=== PATIENT | female | born 1990 | race Caucasian/White ===

== ENCOUNTER 2024-08-19 17:08 | Outpatient (CLI) | payer OTHER ==
[2024-08-19 19:02] LABS: HEMATOCRIT 39.2 % (36.0-45.00); HEMOGLOBIN 13.5 g/dL (12.0-15.00); MEAN CELL VOLUME 94.2 fL (80.00-100.00); MEAN CORPUSCULAR HEMOGLOBIN 32.5 pg (27.00-32.0); MEAN CORPUSCULAR HGB CONC 34.5 g/dl (32.0-36.0); PLATELET COUNT 219 K/uL (150-450); RED BLOOD COUNT 4.16 M/uL (4.00-6.00); RED CELL DISTRIBUTION WIDTH 13.2 % (11.5-14.5)
[2024-08-19 19:03] LABS: PH,URINE 6.5 (5.0-8.0); URINE APPEARANCE Clear; URINE BILIRRUBIN Negative (NEGATIVE); URINE BLOOD Negative; URINE COLOR Yellow; URINE GLUCOSE Negative (NEGATIVE); URINE KETONE Trace (NEGATIVE); URINE LEUKOCYTE Negative; URINE NITRATE Negative; URINE PROTEIN Negative (NEGATIVE); URINE UROBILINOGEN 0.2 E.U./dl
[2024-08-19 19:04] LABS: URINE BACTERIA 122.2 uL (0.0-1933); URINE EPITHELIAL CELLS 2.5 uL (0.0-38.8); URINE RBC 4.7 uL (0.0-20.8); URINE WBC 1.8 uL (0.0-23.2)
[2024-08-19 19:31] LABS: INR 0.97; PROTHROMBIN TIME 10.6 SECONDS (9.0-11.5)
[2024-08-19 19:38] LABS: ALBUMIN 2.9 gm/dL (3.4-5.0); BILIRUBIN TOTAL 0.27 mg/dL (0.3-1.2); CREATININE SERUM 0.52 mg/dL (0.55-1.02); GFR 134.19; GLOBULINA 4.1 G/DL (2.4-3.5); POTASSIUM 3.91 mEq/L (3.5-5.1); URIC ACID 3.8 mg/dL (2.5-7.5)
[2024-08-19 21:52] VITALS: BP 97/63
[2024-08-19 22:00] VITALS: BP 97/63
[2024-08-19] MEDS ORDERED: BETAMETHASONE ACETATE,SOD PHOS 30 MG/5 ML ML IM ONE (23:00)
[2024-08-19] MEDS ORDERED: SODIUM CHLORIDE 0.45 % 1,000 ML IV SCH (23:00)
[2024-08-20] VITALS (7 sets, daily range): BP systolic 96–118; BP diastolic 58–76; O2SAT 98
[2024-08-20] MEDS ORDERED: BETAMETHASONE ACETATE,SOD PHOS 30 MG/5 ML ML IM ONE (19:10)
[2024-08-20 20:00] LABS: URINE PROT QUANT 24HR < 5.00 MG/DL
[2024-08-20 20:16] LABS: CREATININE SERUM 0.67 mg/dL (0.6-1.0)
[2024-08-21 07:05] LABS: CREATINE CLEARANCE 185.4 ML/MIN (97-137)
== END 2024-08-20 21:41 | disposition home or self-care (01) ==
LOC: OBS/DEL 17:08
PROVIDERS: ATTEND Obstetrics & Gynecology
DX: O26.893 Other specified pregnancy related conditions, third trimester (principal); O26.849 Uterine size-date discrepancy, unspecified trimester; O36.8199 Decreased fetal movements, unspecified trimester, other fetus; O14.90 Unspecified pre-eclampsia, unspecified trimester; Z3A.32 32 weeks gestation of pregnancy

== ENCOUNTER 2024-09-17 02:20 | Outpatient (CLI) | payer OTHER ==
[2024-09-17 01:43] VITALS: BP 118/75
[2024-09-17] MEDS ORDERED: PRENATAL VITAM1 EAC3 PO (02:29)
[2024-09-17] MEDS ORDERED: ST. JOSEPH ASPI81 M2 PO (02:29)
[2024-09-17] MEDS ORDERED: RINGERS SOLUTION,LACTATED 1,000 ML IV SCH (02:30)
[2024-09-17 03:02] LABS: URINE APPEARANCE Clear; URINE BILIRRUBIN Negative (NEGATIVE); URINE BLOOD Negative; URINE COLOR Yellow; URINE GLUCOSE Negative (NEGATIVE); URINE KETONE Negative (NEGATIVE); URINE LEUKOCYTE Negative; URINE NITRATE Negative; URINE PROTEIN Negative (NEGATIVE); URINE UROBILINOGEN 0.2 E.U./dl
[2024-09-17 03:03] LABS: HEMATOCRIT 39.8 % (36.0-45.00); HEMOGLOBIN 13.7 g/dL (12.0-15.00); MEAN CELL VOLUME 93.8 fL (80.00-100.00); MEAN CORPUSCULAR HEMOGLOBIN 32.4 pg (27.00-32.0); MEAN CORPUSCULAR HGB CONC 34.5 g/dl (32.0-36.0); PLATELET COUNT 221 K/uL (150-450); RED BLOOD COUNT 4.24 M/uL (4.00-6.00); RED CELL DISTRIBUTION WIDTH 13.6 % (11.5-14.5)
[2024-09-17 03:05] LABS: URINE BACTERIA 285.1 uL (0.0-1933); URINE EPITHELIAL CELLS 5.5 uL (0.0-38.8); URINE WBC 3.9 uL (0.0-23.2)
[2024-09-17 03:29] LABS: URINE RBC 1.4 uL (0.0-20.8)
[2024-09-17 06:06] VITALS: BP 98/60; O2SAT 97
[2024-09-17 10:42] VITALS: BP 110/70
[2024-09-17 15:25] VITALS: BP 105/67
[2024-09-17 15:43] VITALS: BP 105/67
== END 2024-09-17 15:50 | disposition home or self-care (01) ==
LOC: OBS/DEL 02:20
PROVIDERS: ATTEND Obstetrics & Gynecology
DX: O26.893 Other specified pregnancy related conditions, third trimester (principal); O26.849 Uterine size-date discrepancy, unspecified trimester; O36.8199 Decreased fetal movements, unspecified trimester, other fetus; O34.219 Maternal care for unspecified type scar from previous cesarean delivery; O60.00 Preterm labor without delivery, unspecified trimester; O36.5990 Maternal care for other known or suspected poor fetal growth, unspecified trimester, not applicable or unspecified

== ENCOUNTER 2024-09-24 19:55 | Inpatient (IN) | payer OTHER ==
[~2024-09-24] VITALS: Ht 180.3 cm; Wt 2.3 kg
[~2024-09-24 19:55] MED LIST: PRENATAL VITAM1 EAC3 PO; ST. JOSEPH ASPI81 M2 PO
[2024-09-24 20:30] VITALS: BP 113/75
[2024-09-24 21:11] LABS: PH,URINE 6.5 (5.0-8.0); URINE APPEARANCE Clear; URINE BILIRRUBIN Negative (NEGATIVE); URINE BLOOD Negative; URINE COLOR Yellow; URINE GLUCOSE Negative (NEGATIVE); URINE KETONE Negative (NEGATIVE); URINE LEUKOCYTE Negative; URINE NITRATE Negative; URINE PROTEIN Negative (NEGATIVE); URINE UROBILINOGEN 0.2 E.U./dl
[2024-09-24 21:11] LABS: HEMATOCRIT 39.6 % (36.0-45.00); HEMOGLOBIN 13.8 g/dL (12.0-15.00); MEAN CELL VOLUME 93.6 fL (80.00-100.00); MEAN CORPUSCULAR HEMOGLOBIN 32.7 pg (27.00-32.0); MEAN CORPUSCULAR HGB CONC 34.9 g/dl (32.0-36.0); PLATELET COUNT 212 K/uL (150-450); RED BLOOD COUNT 4.23 M/uL (4.00-6.00); RED CELL DISTRIBUTION WIDTH 13.4 % (11.5-14.5)
[2024-09-24 21:14] LABS: URINE BACTERIA 355.9 uL (0.0-1933); URINE EPITHELIAL CELLS 5.2 uL (0.0-38.8)
[2024-09-24 21:17] LABS: URINE RBC 1.7 uL (0.0-20.8)
[2024-09-24 21:31] LABS: INR 0.96; PARTIAL THROMBOPLASTIN TIME 24.9 SECONDS (22.0-34.0); PROTHROMBIN TIME 10.5 SECONDS (9.0-11.5)
[2024-09-24 21:36] LABS: ALBUMIN 2.7 gm/dL (3.4-5.0); BILIRUBIN TOTAL 0.16 mg/dL (0.3-1.2); CALCIUM 9.5 mg/dL (8.5-10.1); CREATININE SERUM 0.55 mg/dL (0.55-1.02); GFR 125.06; GLOBULINA 4.1 G/DL (2.4-3.5); POTASSIUM 4.19 mEq/L (3.5-5.1); TOTAL PROTEIN 6.8 gm/dL (6.4-8.2)
[2024-09-24] MEDS ORDERED: RINGERS SOLUTION,LACTATED 1,000 ML IV SCH (22:15)
[2024-09-24 23:49] VITALS: BP 107/68
[2024-09-25 03:11] VITALS: BP 119/78
[2024-09-25 07:44] VITALS: BP 127/72
[2024-09-25] MEDS ORDERED: ERYTHROMYCIN BASE OPHT 1GM EACH TUBE OP ONE (13:44)
[2024-09-25] MEDS ORDERED: CHLORHEXIDINE GLUCONATE 120 ML BOTTLE TOP ONE (13:45)
[2024-09-25] MEDS ORDERED: OXYTOCIN 10 UNITS/ML VIAL ONE (13:49)
[2024-09-25] MEDS ORDERED: CEFAZOLIN SODIUM 1,000 MG VIAL ONE ×2 (13:50→13:59)
[2024-09-25] MEDS ORDERED: KETOROLAC TROMETHAMINE 60 MG VIAL IM STA (15:29)
[2024-09-25] MEDS ORDERED: OXYTOCIN 1,000 ML IV SCH (15:30)
[2024-09-25] MEDS ORDERED: MEPERIDINE HCL/PF 50 MG/ML VIAL IM PRN (15:30)
[2024-09-25] MEDS ORDERED: RINGERS SOLUTION,LACTATED 1,000 ML IV SCH (15:30)
[2024-09-25] MEDS ORDERED: PROMETHAZINE HCL 25 MG/ML AMPUL IM PRN (15:30)
[2024-09-25] MEDS ORDERED: CHLORHEXIDINE GLUCONATE 120 ML BOTTLE TP SCH (15:30)
[2024-09-25] MEDS ORDERED: KETOROLAC TROMETHAMINE 60 MG VIAL IM ONE ×2 (16:14→16:15)
[2024-09-25 16:29] LABS: HEMATOCRIT 37.8 % (36.0-45.00); HEMOGLOBIN 12.9 g/dL (12.0-15.00); MEAN CELL VOLUME 95.2 fL (80.00-100.00); MEAN CORPUSCULAR HEMOGLOBIN 32.5 pg (27.00-32.0); MEAN CORPUSCULAR HGB CONC 34.1 g/dl (32.0-36.0); PLATELET COUNT 194 K/uL (150-450); RED BLOOD COUNT 3.97 M/uL (4.00-6.00); RED CELL DISTRIBUTION WIDTH 13.2 % (11.5-14.5)
[2024-09-25] MEDS ORDERED: PROMETHAZINE HCL 25 MG/ML AMPUL ONE (17:11)
[2024-09-26 01:51] VITALS: BP 124/85
[2024-09-26 08:00] VITALS: BP 117/76
[2024-09-26] MEDS ORDERED: OxyCODONE HCL/APAP UD (PERCOCET) PO PRN (09:00)
[2024-09-26 16:00] VITALS: BP 138/79
[2024-09-27 00:26] VITALS: BP 120/77
[2024-09-27 08:00] VITALS: BP 121/80
== END 2024-09-27 19:30 | disposition home or self-care (01) | DRG 788 ==
LOC: LDR 19:55 → O/R 19:55 → OB/GYN 09-25 16:15
PROVIDERS: ADMIT Obstetrics & Gynecology; ATTEND Obstetrics & Gynecology
PROC: 10D00Z1 Extraction of Products of Conception, Low, Open Approach (ICD-10-PCS; principal; 2024-09-24)
PROC: 4A1HXCZ Monitoring of Products of Conception, Cardiac Rate, External Approach (ICD-10-PCS; 2024-09-24)
DX: O13.4 Gestational [pregnancy-induced] hypertension without significant proteinuria, complicating childbirth (principal); O34.211 Maternal care for low transverse scar from previous cesarean delivery; Z3A.38 38 weeks gestation of pregnancy; Z37.0 Single live birth